=== PATIENT | female | born 1975 | race Native Hawaiian/Other Pacific Islander ===

== ENCOUNTER 2019-01-21 16:28 | Emergency (ER) | payer OTHER ==
[2019-01-21 17:34] VITALS: BP 142/79
--- NOTE | 2019-01-21 17:36 | Emergency Department Report ---
ED Recheck HPI - General Chief Complaint: Medical Clearance Stated Complaint: OUT OF MEDS Time Seen by Provider: 01/21/19 17:31 Source: patient, family Mode of arrival: Ambulatory Limitations: Language Barrier - History of Present Illness Initial Comments: pt is a 43 yo female who presents to the ED for a medication refill. pt has a hx of seizure disorder. she takes carbamazepine 200 mg in the morning and 400 mg at night. pt does not have a primary care doctor. pt denies any symptoms at all. states she took her medicine this morning. pt has not had a seizure in approximately 10 years. - Related Data Previous Rx's Medication Instructions Recorded Last Taken Type carBAMazepine [TEGretol] 200 mg PO BID #90 tablet 01/21/19 Unknown Rx Allergies Allergy/AdvReac Type Severity Reaction Status Date / Time Penicillins Allergy Hives Verified 01/21/19 16:30 ED Review of Systems ROS: Stated complaint: OUT OF MEDS Other details as noted in HPI Comment: All other systems reviewed and negative ED Past Medical Hx - Past Medical History Previous Medical History?: Yes Hx Seizures: Yes - Surgical History Past Surgical History?: Yes Hx Cholecystectomy: Yes - Medications Home Medications: Home Medications Medication Instructions Recorded Confirmed Last Taken Type carBAMazepine [TEGretol] 200 mg PO BID #90 tablet 01/21/19 Unknown Rx ED Physical Exam - General Limitations: Language Barrier General appearance: alert, in no apparent distress - Head Head exam: Present: atraumatic, normocephalic - Eye Eye exam: Present: normal appearance - ENT ENT exam: Present: mucous membranes moist - Neurological Exam Neurological exam: Present: alert, oriented X3 - Psychiatric Psychiatric exam: Present: normal affect, normal mood - Skin Skin exam: Present: warm, dry, intact ED Course Vital Signs 01/21/19 17:33 Temperature 97.5 F L Pulse Rate 85 Respiratory 20 Rate Blood Pressure 142/79 O2 Sat by Pulse 96 Oximetry ED Recheck MDM - Medical Decision Making pt is a 43 yo female who presents to the ED for a medication refill. pt has a hx of seizure disorder. she takes carbamazepine 200 mg in the morning and 400 mg at night. pt does not have a primary care doctor. pt denies any symptoms at all. states she took her medicine this morning. pt has not had a seizure in approximately 10 years. VSS. pt given a 1 month supply of her medication.advised pt to please take medication as prescribed. please follow up with a primary care doctor in the next 2-3 days. future refills of your medication will need to come through a primary care provider or neurologist. return to the emergency room for any new or worsening symptoms. pt given several primary care providers in the area. Critical care attestation.: If time is entered above; I have spent that time in minutes in the direct care of this critically ill patient, excluding procedure time. ED Disposition Clinical Impression: Medication refill Disposition: TO HOME OR SELFCARE Is pt being admited?: No Does the pt Need Aspirin: No Condition: Stable Additional Instructions: take medication as prescribed. please follow up with a primary care doctor in the next 2-3 days. future refills of your medication will need to come through a primary care provider or neurologist. return to the emergency room for any new or worsening symptoms Prescriptions: carBAMazepine [TEGretol] 200 mg PO BID #90 tablet Referrals: ALBIN HILL MD [Staff Physician] - 2-3 Days KARIN HAMPTON MD [Staff Physician] - 2-3 Days [facility] [Provider Group] - 2-3 Days Time of Disposition: 17:34 Print Language: FRENCH
== END 2019-01-21 17:50 | disposition home or self-care (01) ==
LOC: ED 16:28
DX: G40.909 Epilepsy, unspecified, not intractable, without status epilepticus (principal); Z76.0 Encounter for issue of repeat prescription; Z90.49 Acquired absence of other specified parts of digestive tract; Z79.899 Other long term (current) drug therapy; Z88.0 Allergy status to penicillin

== ENCOUNTER 2019-03-13 17:18 | Emergency (ER) | payer OTHER ==
--- NOTE | 2019-03-13 18:16 | Event Note ---
ED Screening Note Date of service: 03/13/19 Time: 18:12 ED Screening Note: This is a 43 y.o. F. that presents to the ER with right elbow and right leg pain s/p fall. Patient states she was trying to get out of an [employer] when she fell. Denies loc, hitting her head, chest pain, or swelling. LMP 02/18/2019 This initial assessment/diagnostic orders/clinical plan/treatment(s) is/are subject to change based on patients health status, clinical progression and re- assessment by fellow clinical providers in the ED. Further treatment and workup at subsequent clinical providers discretion. Patient/guardian urged not to elope from the ED as their condition may be serious if not clinically assessed and managed. Initial orders include: XR right elbow and right knee
[2019-03-13] MEDS ORDERED: IBUPROFEN 600 MG TAB PO ONE ×2 (18:17→19:12)
--- NOTE | 2019-03-13 19:18 | XRay Report ---
Right elbow-3 views INDICATION: pain and decreased rom. COMPARISON: None. IMPRESSION: No acute osseous or soft tissue abnormality. No significant DJD. Signer Name: Moses Earl MD Signed: 03/13/2019 7:14 PM Workstation Name: [id number]
--- NOTE | 2019-03-13 19:19 | XRay Report ---
Right knee-3 views INDICATION: Fall today with generalized knee pain. COMPARISON: None. IMPRESSION: No acute osseous or soft tissue abnormality. No significant DJD. Signer Name: Moses Earl MD Signed: 03/13/2019 7:15 PM Workstation Name: [id number]
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
--- NOTE | 2019-03-13 20:01 | XRay Report ---
XR spine lumbosacral 2-3V INDICATION / CLINICAL INFORMATION: low back pain. COMPARISON: None available. FINDINGS: BONES/JOINT(S): No vertebral fracture. No significant degenerative changes. Normal alignment and bone mineralization. SOFT TISSUES: No significant abnormality. ADDITIONAL FINDINGS: None. Signer Name: Keenan Curran MD Signed: 03/13/2019 7:56 PM Workstation Name: [id number]
[2019-03-13 20:20] VITALS: BP 127/70
== END 2019-03-13 20:15 | disposition home or self-care (01) ==
LOC: ED 17:18
DX: M25.521 Pain in right elbow (principal); M25.561 Pain in right knee; M54.5 Low back pain; Z88.0 Allergy status to penicillin; G40.909 Epilepsy, unspecified, not intractable, without status epilepticus; Z90.49 Acquired absence of other specified parts of digestive tract; Z79.1 Long term (current) use of non-steroidal anti-inflammatories (NSAID); Z79.899 Other long term (current) drug therapy
CPT/HCPCS: 72100; 99283

== ENCOUNTER 2020-02-16 00:39 | Inpatient (IN) | payer OTHER ==
[2020-02-16 00:46] VITALS: BP 119/66
[2020-02-16 01:25] LABS: Basophils % (Auto) 0.3 % (0.0-1.8); Hematocrit 40.8 % (30.3-42.9); Hemoglobin 14.2 gm/dl (10.1-14.3); Lymphocytes # (Auto) 0.7 K/mm3 (1.2-5.4); Lymphocytes % (Auto) 10.8 % (13.4-35.0); Mean Corpuscular HGB Conc 35 % (30-34); Mean Corpuscular Volume 93 fl (79-97); Monocytes # (Auto) 0.5 K/mm3 (0.0-0.8); Monocytes % (Auto) 7.6 % (0.0-7.3); Platelet Count 208 K/mm3 (140-440); Red Blood Count 4.37 M/mm3 (3.65-5.03); Red Cell Distribution Width 12.4 % (13.2-15.2)
[2020-02-16 01:28] LABS: Bacteria,Urine 1+ /HPF (Negative); Bilirubin,Urine NEG (Negative); Blood,Urine NEG (Negative); Color,Urine Yellow (Yellow); Mucus,Urine 2+ /HPF
[2020-02-16 01:42] LABS: Blood Urea Nitrogen 9 mg/dL (7-17); Hemolysis Index 3
[2020-02-16 01:44] LABS: BUN/Creatinine Ratio 18
[2020-02-16] MEDS ORDERED: METOCLOPRAMIDE 10 MG/2 ML INJ IV ONE (01:57)
[2020-02-16] MEDS ORDERED: ONDANSETRON 4 MG/2 ML INJ IV ONE (01:57)
[2020-02-16] MEDS ORDERED: diphenhydrAMINE 50 MG/ML VIAL IV ONE (01:57)
[2020-02-16] MEDS ORDERED: ACETAMINOPHEN 500 MG TAB PO ONE (01:57)
[2020-02-16] MEDS ORDERED: SODIUM CHLORIDE 0.9% 1000 ML 1,000 ML IV ONE ×2 (01:58→02:15)
--- NOTE | 2020-02-16 02:07 | XRay Report ---
CHEST 1 VIEW INDICATION: fever. COMPARISON: None. FINDINGS: Support devices: None. Heart: Normal. Lungs/Pleura: There is patchy bilateral airspace disease sparing the apices. No significant effusion, no pneumothorax. IMPRESSION: 1. Patchy bilateral airspace disease, greatest in the inferior right upper lobe. These findings are c oncerning for pneumonia. Signer Name: Dany Stroud MD Signed: 02/16/2020 2:02 AM Workstation Name: [id number]
[2020-02-16 02:13] LABS: Alanine Aminotransferase 97 units/L (7-56); Albumin 3.9 g/dL (3.9-5); Bilirubin,Direct < 0.2 mg/dL (0-0.2)
[2020-02-16] MEDS ORDERED: cefTRIAXone/NS 1 GM/50 ML 1 GM/50 ML BAG IV ONE ×2 (02:15→03:44)
[2020-02-16] MEDS ORDERED: AZITHROMYCIN 500 MG in SODIUM CHLORIDE 0.9% 250ML 250 ML IV ONE (02:15)
[2020-02-16] MEDS ORDERED: IPRATROPIUM/ALBUTEROL SULFATE 3 ML AMPUL.NEB IH ONE (02:38)
[2020-02-16] MEDS ORDERED: dexAMETHasone 20 MG/5 ML VIAL IV ONE (02:38)
--- NOTE | 2020-02-16 03:05 | Emergency Department Report ---
ED General Adult HPI - General Chief complaint: Fever Stated complaint: N/V CHILLS AND HEADACHE Source: patient Mode of arrival: Ambulatory Limitations: No Limitations - History of Present Illness Initial comments: Per family, patient is a 44-year-old female with a history of chronic epileptic seizures who presents to the ED with complaint of acute onset persistent diffuse body aches and pains, generalized weakness and fatigue, persistent dry cough with shortness of breath and wheezing, nausea and vomiting and severe headache and lack of appetite for the last 3 days, worse in the last 24 hours. Family states that the patient has not had any diarrhea, abdominal p ain, chest pain, dizziness, syncope, seizures, dysuria, urinary frequency and urgency, vaginal bleeding, vaginal discharge, loss of consciousness, palpitations or sore throat. MD Complaint: Shortness of breath, fever, nausea and vomiting, headache and weakness -: Sudden, days(s) (3) Location: chest Radiation: non-radiation Severity scale (0 -10): 10 Quality: aching, sharp Consistency: constant Improves with: none Worsens with: none Associated Symptoms: denies other symptoms, cough, fever/chills, headaches, loss of appetite, malaise, nausea/vomiting, shortness of breath, weakness. denies: confusion, chest pain, diaphoresis, rash, seizure, syncope Treatments Prior to Arrival: none - Related Data Previous Rx's Medication Instructions Recorded Last Taken Type carBAMazepine [TEGretol] 200 mg PO BID #90 tablet 01/21/19 Unknown Rx Cyclobenzaprine HCl [Flexeril 5 MG 5 mg PO TID PRN #10 tab 03/13/19 Unknown Rx TAB] Ibuprofen [Motrin 600 MG tab] 600 mg PO Q8H PRN #20 tablet 03/13/19 Unknown Rx Allergies Allergy/AdvReac Type Severity Reaction Status Date / Time Penicillins Allergy Hives Verified 01/21/19 16:30 ED Review of Systems ROS: Stated complaint: N/V CHILLS AND HEADACHE Other details as noted in HPI Constitutional: chills, fever, malaise, weakness Eyes: denies: eye pain, eye discharge, vision change ENT: denies: ear pain, throat pain Respiratory: cough, shortness of breath, wheezing Cardiovascular: denies: chest pain, palpitations Endocrine: no symptoms reported Gastrointestinal: nausea, vomiting. denies: abdominal pain, diarrhea Genitourinary: denies: urgency, dysuria, discharge Musculoskeletal: arthralgia, myalgia. denies: back pain, joint swelling Skin: denies: rash, lesions Neurological: headache. denies: weakness, paresthesias Psychiatric: denies: anxiety, depression Hematological/Lymphatic: denies: easy bleeding, easy bruising ED Past Medical Hx - Past Medical History Previous Medical History?: Yes Hx Seizures: Yes (Epilepsy) Additional medical history: Right hand deformity - Surgical History Past Surgical History?: Yes Hx Cholecystectomy: Yes - Social History Smoking Status: Never Smoker Substance Use Type: None - Medications Home Medications: Home Medications Medication Instructions Recorded Confirmed Last Taken Type carBAMazepine [TEGretol] 200 mg PO BID #90 tablet 01/21/19 Unknown Rx Cyclobenzaprine HCl [Flexeril 5 MG 5 mg PO TID PRN #10 tab 03/13/19 Unknown Rx TAB] Ibuprofen [Motrin 600 MG tab] 600 mg PO Q8H PRN #20 tablet 03/13/19 Unknown Rx ED Physical Exam - General Limitations: No Limitations General appearance: alert, in no apparent distress, lethargic - Head Head exam: Present: atraumatic, normocephalic, normal inspection - Eye Eye exam: Present: normal appearance, PERRL, EOMI Pupils: Present: normal accommodation - ENT ENT exam: Present: normal exam, normal orophraynx, mucous membranes moist, TM's normal bilaterally, normal external ear exam - Neck Neck exam: Present: normal inspection, full ROM - Respiratory Respiratory exam: Present: wheezes (Mildly diffuse coarse wheezes throughout). Absent: respiratory distress, rales, rhonchi, stridor, chest wall tenderness, d ecreased breath sounds, prolonged expiratory - Cardiovascular Cardiovascular Exam: Present: normal rhythm, tachycardia, normal heart sounds. Absent: systolic murmur, diastolic murmur, rubs, gallop - GI/Abdominal GI/Abdominal exam: Present: soft, normal bowel sounds. Absent: tenderness, guarding, rebound, hyperactive bowel sounds, hypoactive bowel sounds, organomegaly - Extremities Exam Extremities exam: Present: normal inspection, full ROM, normal capillary refill - Back Exam Back exam: Present: normal inspection, full ROM. Absent: tenderness, CVA tenderness (R), CVA tenderness (L), muscle spasm, paraspinal tenderness, vertebral tenderness - Neurological Exam Neurological exam: Present: alert, oriented X3, CN II-XII intact, normal gait, reflexes normal - Psychiatric Psychiatric exam: Present: normal affect, normal mood - Skin Skin exam: Present: warm, dry, intact, normal color. Absent: rash ED Course Vital Signs 02/16/20 02/16/20 00:44 03:12 Temperature 100.6 F H Pulse Rate 127 H Pulse Rate [ 114 H Bilateral Throughout] Respiratory 18 Rate Respiratory 18 Rate [Bilateral Throughout] Blood Pressure 119/66 O2 Sat by Pulse 87 97 Oximetry ED Medical Decision Making - Lab Data Result diagrams: 02/16/20 00:55 02/16/20 02:33 - Radiology Data Radiology results: report reviewed, image reviewed Findings [facility] [address] [place] [address] XRay Report Signed Patient: FLORENTIN LAKE MR#: [id number] : 1975 Acct:[id number] Age/Sex: 44 / F ADM Date: 02/16/20 Loc: ED Attending Dr: Ordering Physician: TORIE ANDERSEN Date of Service: 02/16/20 Procedure(s): XR chest 1V ap Accession Number(s): [id number] cc: TORIE ANDERSEN Fluoro Time In Minutes: CHEST 1 VIEW INDICATION: fever. COMPARISON: None. FINDINGS: Support devices: None. Heart: Normal. Lungs/Pleura: There is patchy bilateral airspace disease sparing the apices. No significant effusion, no pneumothorax. IMPRESSION: 1. Patchy bilateral airspace disease, greatest in the inferior right upper lobe. These findings are concerning for pneumonia. Signer Name: Dany Stroud MD Signed: 02/16/2020 2:02 AM Workstation Name: [id number] Transcribed By: MYLA Dictated By: Dany Stroud MD Electronically Authenticated By: Dany Stroud MD Signed Date/Time: 02/16/20201 DD/ 0 TD/TT: - Medical Decision Making This is a 44-year-old female with a history of chronic epileptic seizures who presents to the ED with complaint of acute onset persistent diffuse body aches and pains, generalized weakness and fatigue, persistent dry cough with shortness of breath and wheezing, nausea and vomiting and severe headache and lack of appetite for the last 3 days, worse in the last 24 hours. In the ED, patient is alert and oriented x3 and is in moderate respiratory distress with oxygen saturation of 87% in room air, tachycardic and febrile in triage. Patient was treated for fever, also received antiemetics, normal saline 2 L IV bolus and also given DuoNeb treatment and Decadron IV. Lab test results were reviewed and showed transaminitis with AST of 71 and ALT of 97. Chest x-ray showed patchy bilateral airspace disease, greatest in the inferior right upper lobe. These findings are concerning for pneumonia. Based on the patient's vital signs, patient was placed on nasal canula oxygen. These findings were discussed with the ED attending physician Dr. Miles who agreed with the plan of care admit the patient to the hospital with the hospitalist physician Dr. Abel. I therefore paged and discussed the patient's case with the hospitalist physician on-call Dr. Abel who also evaluated the patient in the ED. The patient however declined admission in the hospital, stating that she is feeling better already and she opted to sign out AMA from the hospital. I personally explained to the patient with a [place] educational speech language clinician the importance of her continued treatment in the hospital but the patient declined and stated that she will assume responsibility for anything that happens to her and opted to sign out AMA and refused to continue with the treatment in the hospital. - Differential Diagnosis Pneumonia; Covid-19; Hypoxia; Dehydration; ACS Critical care attestation.: If time is entered above; I have spent that time in minutes in the direct care of this critically ill patient, excluding procedure time. ED Disposition Clinical Impression: Shortness of breath, Suspected COVID-19 virus infection, Hypoxia Community acquired pneumonia Qualifiers: Laterality: right Lung location: upper lobe of lung Qualified Code(s): J18.9 - Pneumonia, unspecified organism Disposition: - LEFT AGAINST MED ADVICE Is pt being admited?: No Does the pt Need Aspirin: No Condition: Stable Time of Disposition: 03:11
[2020-02-16] MEDS ORDERED: ONDANSETRON 4 MG/2 ML INJ IV PRN (03:11)
[2020-02-16] MEDS ORDERED: ACETAMINOPHEN 325 MG TAB PO PRN (03:11)
[2020-02-16 04:44] LABS: C-Reactive Protein 9.6 mg/dL (0.00-1.30)
== END 2020-02-16 04:43 | disposition left against medical advice (07) | DRG 195 ==
LOC: ED 00:39 → 3A 03:11
PROVIDERS: ADMIT Internal Medicine Geriatric Medicine; ATTEND Internal Medicine Geriatric Medicine
DX: J18.9 Pneumonia, unspecified organism (principal); R09.02 Hypoxemia; Z88.0 Allergy status to penicillin; Z90.49 Acquired absence of other specified parts of digestive tract; Z79.899 Other long term (current) drug therapy
CPT/HCPCS: 36415; 71045; 80048; 80076; 81001; 82728; 82947; 83520; 83615; 84145; 84484; 84703; 85025; 85379; 86140; 87040; 93005; 94644; 96365; 96375; G0378; J0456; J0696; J1200; J2405; J2765; J7030; J7050